=== PATIENT | female | born 1955 | race Caucasian/White ===

== ENCOUNTER 2017-08-15 16:13 | Emergency (ER) | payer MEDICAID ==
[2017-08-15] MEDS: FAMOTIDINE 20 MG TAB PO (16:47)
[2017-08-15] MEDS: predniSONE 20 MG TAB PO (16:47)
[2017-08-15] MEDS: IPRATROPIUM (NEB) 0.5 MG/2.5 ML AMP HHN (16:51)
[2017-08-15] MEDS: ALBUTEROL 0.083% (NEB) 2.5 MG/3 ML AMP HHN (16:51)
[2017-08-15 17:22] LABS: ADD MAN DIFF? NO
[2017-08-15 17:33] LABS: BASOPHILS % 0.1 % (0.0-2.0); HEMATOCRIT 38.8 % (37.0-47.0); HEMOGLOBIN 12.4 g/dl (12.0-16.0); LYMPHOCYTES # 0.8 10^3/ul (0.8-2.9); LYMPHOCYTES % 7.7 % (15.0-51.0); MEAN CORPUSCULAR HEMOGLOBIN 27.1 pg (29.0-33.0); MEAN CORPUSCULAR VOLUME 84.9 fl (82.0-101.0); MEAN PLATELET VOLUME 10.5 fl (7.4-10.4); MONOCYTE # 0.1 10^3/ul (0.3-0.9); MONOCYTES % 0.8 % (0.0-11.0); NEUTROPHIL # 9.7 10^3/ul (1.6-7.5); NEUTROPHILS % 91.1 % (39.0-77.0); PLATELET COUNT 244 10^3/UL (140-415); RED BLOOD COUNT 4.57 10^6/ul (4.20-5.40); RED CELL DISTRIBUTION WIDTH 14.9 % (11.5-14.5)
[2017-08-15 17:33] LABS: WHITE BLOOD COUNT 10.6 10^3/ul (4.8-10.8)
[2017-08-15 17:45] LABS: ALANINE AMINOTRANSFERASE 37 IU/L (13-69); ALBUMIN 4.2 g/dl (3.3-4.9); ALKALINE PHOSPHATASE 107 IU/L (42-121); ANION GAP 17 (8-16); ASPARTATE AMINO TRANSFERASE 27 IU/L (15-46); BLOOD UREA NITROGEN 10 mg/dl (7-20); CALCIUM 9.7 mg/dl (8.4-10.2); CARBON DIOXIDE 23 mmol/L (21-31); CHLORIDE 111 mmol/L (97-110); CREATININE 0.72 mg/dl (0.44-1.00); GLUCOSE 167 mg/dl (70-220); LIPASE 75 U/L (23-300); POTASSIUM 4.5 mmol/L (3.5-5.1); SODIUM 146 mmol/L (135-144)
== END 2017-08-15 18:39 | disposition home or self-care (01) ==
LOC: FTE 16:13
DX: J45.901 Unspecified asthma with (acute) exacerbation (principal); R10.13 Epigastric pain; Z79.82 Long term (current) use of aspirin
CPT/HCPCS: 71045; 80053; 83690; 85025; 93005; 94664; 99285-25

== ENCOUNTER 2017-08-21 07:12 | Emergency (ER) | payer MEDICAID ==
[2017-08-21] MEDS: DEXAMETHASONE 10 MG/ML 1 ML INJ IM (07:41)
[2017-08-21] MEDS: ALBUTEROL 0.083% (NEB) 2.5 MG/3 ML AMP HHN ×2 (07:49→08:49)
[2017-08-21] MEDS: IPRATROPIUM (NEB) 0.5 MG/2.5 ML AMP HHN (07:49)
== END 2017-08-21 09:47 | disposition home or self-care (01) ==
LOC: FTE 07:12
DX: J45.901 Unspecified asthma with (acute) exacerbation (principal); Z79.82 Long term (current) use of aspirin
CPT/HCPCS: 94640; 94664; 96372; 99284-25

== ENCOUNTER 2018-05-29 10:55 | Inpatient (IN) | payer MEDICAID ==
[2018-05-29] MEDS: IPRATROPIUM (NEB) 0.5 MG/2.5 ML AMP INH (11:36)
[2018-05-29] MEDS: ALBUTEROL 0.5% (NEB) 2.5 MG/0.5 ML AMP INH (11:36)
[2018-05-29] MEDS: METHYLPREDNISOLONE 125 MG INJ IV (11:43)
[2018-05-29] MEDS: KETOROLAC 30 MG INJ IV (11:43)
[2018-05-29] MEDS: ACETAMINOPHEN 325 MG TAB PO ×2 (11:44→23:43)
[2018-05-29] MEDS: SODIUM CHLORIDE 0.9% 1L BAG IV* (11:44)
[2018-05-29 12:15] LABS: HEMATOCRIT 36.2 % (37.0-47.0); HEMOGLOBIN 11.7 g/dl (12.0-16.0); MEAN CORPUSCULAR HEMOGLOBIN 26.7 pg (29.0-33.0); MEAN CORPUSCULAR HGB CONC 32.3 g/dl (32.0-37.0); MEAN CORPUSCULAR VOLUME 82.6 fl (82.0-101.0); MEAN PLATELET VOLUME 11.5 fl (7.4-10.4); PLATELET COUNT 142 10^3/UL (140-415); RED BLOOD COUNT 4.38 10^6/ul (4.20-5.40); RED CELL DISTRIBUTION WIDTH 15.3 % (11.5-14.5)
[2018-05-29 12:15] LABS: WHITE BLOOD COUNT 22.6 10^3/ul (4.8-10.8)
[2018-05-29 12:18] LABS: ADD MAN DIFF? YES; POSITIVE DIFF @See below
[2018-05-29 12:34] LABS: ALANINE AMINOTRANSFERASE 33 IU/L (13-69); ALBUMIN 3.7 g/dl (3.3-4.9); ALBUMIN/GLOBULIN RATIO 1.23; ALKALINE PHOSPHATASE 114 IU/L (42-121); ANION GAP 11 (5-13); ASPARTATE AMINO TRANSFERASE 39 IU/L (15-46); BILIRUBIN,INDIRECT 0.4 mg/dl (0-1.1); BILIRUBIN,TOTAL 0.4 mg/dl (0.2-1.3); BLOOD UREA NITROGEN 16 mg/dl (7-20); CALCIUM 8.8 mg/dl (8.4-10.2); CARBON DIOXIDE 22 mmol/L (21-31); CHLORIDE 101 mmol/L (97-110); CREATININE 1.12 mg/dl (0.44-1.00); Estimated GFR 49 mL/min (>60); GLUCOSE 114 mg/dl (70-220); LIPASE 18 U/L (23-300); SODIUM 134 mmol/L (135-144); TOTAL PROTEIN 6.7 g/dl (6.1-8.1)
[2018-05-29 12:41] LABS: ADD UMIC YES; UR ASCORBIC ACID NEGATIVE (NEGATIVE); UR BACTERIA FEW /HPF (NONE SEEN); UR BILIRUBIN (Dip) NEGATIVE (NEGATIVE); UR BLOOD (Dip) 2+ mg/dL (NEGATIVE); UR CLARITY SLIGHTLY CLOUDY (CLEAR); UR COLOR YELLOW (YELLOW); UR GLUCOSE (Dip) NEGATIVE (NEGATIVE); UR KETONES (Dip) 1+ mg/dL (NEGATIVE); UR LEUKOCYTE ESTERASE (Dip) 2+ Leu/ul (NEGATIVE); UR NITRITE (Dip) POSITIVE (NEGATIVE); UR RBC 4 /HPF (0-5); UR SPECIFIC GRAVITY (Dip) 1.012 (1.003-1.030); UR SQUAMOUS EPITHELIAL CELL FEW /HPF (FEW); UR TOTAL PROTEIN (Dip) 1+ mg/dl (NEGATIVE); UR UROBILINOGEN (Dip) NEGATIVE (NEGATIVE); UR WBC 108 /HPF (0-5)
[2018-05-29 12:42] LABS: INR 1.12; PROTIME 14.5 Sec (11.9-14.9); PT RATIO 1.1
[2018-05-29 12:43] LABS: ANISOCYTOSIS 1+ (0-0); BAND NEUTROPHILS #M 4.5 10^3/ul (0.0-0.6); BAND NEUTROPHILS % (M) 20 % (0-4); LYMPHOCYTES #M 3.6 10^3/ul (0.8-2.9); LYMPHOCYTES % (M) 16 % (15-51); MICROCYTOSIS 1+ (0-0); PARTIAL THROMBOPLASTIN TIME 33.2 Sec (23.0-35.0); PLATELET ESTIMATE NORMAL; REACTIVE LYMPHOCYTES #M 0.4 10^3/ul (0.0-0.0); REACTIVE LYMPHOCYTES% (M) 2 % (0-0); SEGMENTED NEUTROPHILS (M) % 62 % (39-77); SMUDGE%M 4 % (0-0)
[2018-05-29 12:45] LABS: TROPONIN-I < 0.012 ng/ml (0.000-0.120)
[2018-05-29] MEDS: CEFTRIAXONE 1 GM/50 ML (PMX) 50 ML IVPB ×3 (13:55→14:00)
[2018-05-29] MEDS ORDERED: ALBUTEROL 0.083% (NEB) 2.5 MG/3 ML AMP NEB (14:00)
[2018-05-29] MEDS ORDERED: ALPRAZOLAM 0.25 MG TAB PO (14:00)
[2018-05-29] MEDS ORDERED: ACETAMINOPHEN 325 MG TAB PO (14:00)
[2018-05-29] MEDS ORDERED: ONDANSETRON 4 MG INJ IV (14:00)
[2018-05-29] MEDS: SOD CHLORIDE 0.9% 1,000 ML IV (16:37)
[2018-05-29 19:54] LABS: LACTIC ACID 1.2 mmol/L (0.5-2.0)
[2018-05-29] MEDS: ATORVASTATIN 80 MG TAB PO (21:23)
[2018-05-29] MEDS: DOCUSATE SODIUM 100 MG CAP PO (21:23)
[2018-05-29] MEDS: MONTELUKAST 10 MG TAB PO (21:23)
[2018-05-29] MEDS: METOPROLOL 25 MG TAB PO (21:25)
[2018-05-29] MEDS: FLUTICASONE/VILANTEROL 100-25 INH (22:00)
[2018-05-30] MEDS: SOD CHLORIDE 0.9% 1,000 ML IV ×3 (02:14→19:06)
[2018-05-30] MEDS: PANTOPRAZOLE (EC) 40 MG TAB PO (06:09)
[2018-05-30 06:44] LABS: WHITE BLOOD COUNT 22.3 10^3/ul (4.8-10.8)
[2018-05-30 06:44] LABS: ABNORMAL IP MESSAGE 1; HEMATOCRIT 32.3 % (37.0-47.0); HEMOGLOBIN 10.2 g/dl (12.0-16.0); MEAN CORPUSCULAR HEMOGLOBIN 26.4 pg (29.0-33.0); MEAN CORPUSCULAR HGB CONC 31.6 g/dl (32.0-37.0); MEAN CORPUSCULAR VOLUME 83.7 fl (82.0-101.0); MEAN PLATELET VOLUME 11.9 fl (7.4-10.4); PLATELET COUNT 121 10^3/UL (140-415); RED BLOOD COUNT 3.86 10^6/ul (4.20-5.40); RED CELL DISTRIBUTION WIDTH 15.6 % (11.5-14.5)
[2018-05-30 07:05] LABS: ADD MAN DIFF? YES; POSITIVE DIFF @See below
[2018-05-30 07:20] LABS: ANION GAP 10 (5-13); BLOOD UREA NITROGEN 17 mg/dl (7-20); CALCIUM 7.8 mg/dl (8.4-10.2); CARBON DIOXIDE 21 mmol/L (21-31); CHLORIDE 111 mmol/L (97-110); CREATININE 0.85 mg/dl (0.44-1.00); Estimated GFR > 60 mL/min (>60); GLUCOSE 118 mg/dl (70-220); MAGNESIUM 2.4 mg/dl (1.7-2.5); POTASSIUM 4.1 mmol/L (3.5-5.1); SODIUM 142 mmol/L (135-144)
[2018-05-30] MEDS: ACETAMINOPHEN 325 MG TAB PO ×2 (08:16→20:44)
[2018-05-30] MEDS: DOCUSATE SODIUM 100 MG CAP PO ×2 (08:16→20:45)
[2018-05-30] MEDS: METOPROLOL 25 MG TAB PO ×2 (08:17→20:45)
[2018-05-30] MEDS: ASPIRIN (EC) 81 MG TAB PO (08:17)
[2018-05-30] MEDS: LORATADINE 10 MG TAB PO (08:17)
[2018-05-30] MEDS: ISOSORBIDE MONONITRATE(SR)30 MG TAB PO (09:00)
[2018-05-30 09:20] LABS: ANISOCYTOSIS 2+ (0-0); BAND NEUTROPHILS #M 5.5 10^3/ul (0.0-0.6); BAND NEUTROPHILS % (M) 25 % (0-4); BURR CELLS 2+ (0-0); LYMPHOCYTES #M 0.6 10^3/ul (0.8-2.9); LYMPHOCYTES % (M) 3 % (15-51); MICROCYTOSIS 2+ (0-0); MONOCYTE #M 1.3 10^3/ul (0.3-0.9); MONOCYTES % (M) 6 % (0-11); OVALOCYTES 1+ (0-0); PLATELET ESTIMATE DECREASED; POIKILOCYTOSIS 3+ (0-0); POLYCHROMASIA 2+ (0-0); SEG NEUT #M 15.9 10^3/ul (1.6-7.5); SEGMENTED NEUTROPHILS (M) % 66 % (39-77); SMUDGE%M 4 % (0-0)
[2018-05-30] MEDS: CEFTRIAXONE 1 GM/50 ML (PMX) 50 ML IVPB (14:09)
[2018-05-30] MEDS: CLOPIDOGREL 75 MG TAB PO (14:09)
[2018-05-30] MEDS: FLUTICASONE/VILANTEROL 100-25 INH (14:09)
[2018-05-30] MEDS: MEROPENEM 1 GM/50ML(PMX) 50 ML IVPB ×2 (15:56→21:08)
[2018-05-30] MEDS: MONTELUKAST 10 MG TAB PO (20:44)
[2018-05-30] MEDS: ATORVASTATIN 80 MG TAB PO (20:44)
[2018-05-31] MEDS: SOD CHLORIDE 0.9% 1,000 ML IV ×3 (05:08→20:30)
[2018-05-31] MEDS: PANTOPRAZOLE (EC) 40 MG TAB PO (05:09)
[2018-05-31] MEDS: MEROPENEM 1 GM/50ML(PMX) 50 ML IVPB ×3 (05:09→22:36)
[2018-05-31] MEDS: ACETAMINOPHEN 325 MG TAB PO ×3 (05:13→23:33)
[2018-05-31 05:33] LABS: WHITE BLOOD COUNT 17.7 10^3/ul (4.8-10.8)
[2018-05-31 05:33] LABS: HEMATOCRIT 34.3 % (37.0-47.0); MEAN CORPUSCULAR HEMOGLOBIN 26.3 pg (29.0-33.0); MEAN CORPUSCULAR HGB CONC 32.1 g/dl (32.0-37.0); MEAN CORPUSCULAR VOLUME 82.1 fl (82.0-101.0); MEAN PLATELET VOLUME 12.2 fl (7.4-10.4); PLATELET COUNT 153 10^3/UL (140-415); RED BLOOD COUNT 4.18 10^6/ul (4.20-5.40); RED CELL DISTRIBUTION WIDTH 15.8 % (11.5-14.5)
[2018-05-31 05:52] LABS: ADD MAN DIFF? YES; POSITIVE DIFF @See below
[2018-05-31 06:10] LABS: ANION GAP 9 (5-13); BLOOD UREA NITROGEN 13 mg/dl (7-20); CARBON DIOXIDE 20 mmol/L (21-31); CHLORIDE 112 mmol/L (97-110); CREATININE 0.91 mg/dl (0.44-1.00); Estimated GFR > 60 mL/min (>60); GLUCOSE 96 mg/dl (70-220); POTASSIUM 3.8 mmol/L (3.5-5.1); SODIUM 141 mmol/L (135-144)
[2018-05-31] MEDS: ASPIRIN (EC) 81 MG TAB PO (08:14)
[2018-05-31] MEDS: LORATADINE 10 MG TAB PO (08:14)
[2018-05-31] MEDS: DOCUSATE SODIUM 100 MG CAP PO ×2 (08:14→20:32)
[2018-05-31] MEDS: CLOPIDOGREL 75 MG TAB PO (08:14)
[2018-05-31] MEDS: ISOSORBIDE MONONITRATE(SR)30 MG TAB PO (08:15)
[2018-05-31] MEDS: METOPROLOL 25 MG TAB PO ×2 (08:15→20:32)
[2018-05-31] MEDS: FLUTICASONE/VILANTEROL 100-25 INH (08:16)
[2018-05-31 09:28] LABS: BAND NEUTROPHILS #M 0.5 10^3/ul (0.0-0.6); BAND NEUTROPHILS % (M) 3 % (0-4); BURR CELLS 1+ (0-0); LYMPHOCYTES #M 1.4 10^3/ul (0.8-2.9); LYMPHOCYTES % (M) 8 % (15-51); MONOCYTE #M 0.8 10^3/ul (0.3-0.9); MONOCYTES % (M) 5 % (0-11); OVALOCYTES 1+ (0-0); PLATELET ESTIMATE NORMAL; POIKILOCYTOSIS 1+ (0-0); REACTIVE LYMPHOCYTES #M 0.5 10^3/ul (0.0-0.0); REACTIVE LYMPHOCYTES% (M) 3 % (0-0); SEG NEUT #M 14.4 10^3/ul (1.6-7.5); SEGMENTED NEUTROPHILS (M) % 81 % (39-77); SMUDGE%M 3 % (0-0)
[2018-05-31] MEDS: ATORVASTATIN 80 MG TAB PO (20:31)
[2018-05-31] MEDS: MONTELUKAST 10 MG TAB PO (20:32)
[2018-06-01] MEDS: SOD CHLORIDE 0.9% 1,000 ML IV ×4 (02:00→18:35)
[2018-06-01 05:18] LABS: ADD MAN DIFF? NO
[2018-06-01 05:24] LABS: BASOPHILS % 0.1 % (0.0-2.0); EOSINOPHILS # 0.1 10^3/ul (0.0-0.5); EOSINOPHILS % 1.2 % (0.0-7.0); HEMATOCRIT 31.9 % (37.0-47.0); HEMOGLOBIN 10.1 g/dl (12.0-16.0); LYMPHOCYTES # 1.6 10^3/ul (0.8-2.9); LYMPHOCYTES % 15.9 % (15.0-51.0); MEAN CORPUSCULAR HEMOGLOBIN 26.3 pg (29.0-33.0); MEAN CORPUSCULAR HGB CONC 31.7 g/dl (32.0-37.0); MEAN CORPUSCULAR VOLUME 83.1 fl (82.0-101.0); MEAN PLATELET VOLUME 11.7 fl (7.4-10.4); MONOCYTE # 0.9 10^3/ul (0.3-0.9); MONOCYTES % 9.1 % (0.0-11.0); NEUTROPHIL # 7.3 10^3/ul (1.6-7.5); NEUTROPHILS % 73.3 % (39.0-77.0); PLATELET COUNT 154 10^3/UL (140-415); RED BLOOD COUNT 3.84 10^6/ul (4.20-5.40); RED CELL DISTRIBUTION WIDTH 15.7 % (11.5-14.5)
[2018-06-01 05:24] LABS: WHITE BLOOD COUNT 9.9 10^3/ul (4.8-10.8)
[2018-06-01] MEDS: MEROPENEM 1 GM/50ML(PMX) 50 ML IVPB (05:32)
[2018-06-01] MEDS: PANTOPRAZOLE (EC) 40 MG TAB PO (05:32)
[2018-06-01 05:46] LABS: ANION GAP 7 (5-13); BLOOD UREA NITROGEN 8 mg/dl (7-20); CALCIUM 8.3 mg/dl (8.4-10.2); CARBON DIOXIDE 23 mmol/L (21-31); CHLORIDE 112 mmol/L (97-110); CREATININE 0.83 mg/dl (0.44-1.00); Estimated GFR > 60 mL/min (>60); GLUCOSE 100 mg/dl (70-220); POTASSIUM 3.6 mmol/L (3.5-5.1); SODIUM 142 mmol/L (135-144)
[2018-06-01] MEDS: FLUTICASONE/VILANTEROL 100-25 INH (08:30)
[2018-06-01] MEDS: DOCUSATE SODIUM 100 MG CAP PO ×2 (08:31→20:41)
[2018-06-01] MEDS: ACETAMINOPHEN 325 MG TAB PO ×2 (08:31→16:10)
[2018-06-01] MEDS: METOPROLOL 25 MG TAB PO ×2 (08:32→20:37)
[2018-06-01] MEDS: CLOPIDOGREL 75 MG TAB PO (08:33)
[2018-06-01] MEDS: LORATADINE 10 MG TAB PO (08:33)
[2018-06-01] MEDS: ISOSORBIDE MONONITRATE(SR)30 MG TAB PO (08:33)
[2018-06-01] MEDS: ASPIRIN (EC) 81 MG TAB PO (08:33)
[2018-06-01] MEDS: IBUPROFEN 400 MG TAB PO ×2 (12:04→17:28)
[2018-06-01] MEDS: LEVOFLOXACIN 750MG/D5W (PMX) 150 ML IVPB (13:02)
[2018-06-01] MEDS: MONTELUKAST 10 MG TAB PO (20:36)
[2018-06-01] MEDS: ATORVASTATIN 80 MG TAB PO (20:36)
[2018-06-02] MEDS: IBUPROFEN 400 MG TAB PO ×3 (00:18→12:00)
[2018-06-02] MEDS: SOD CHLORIDE 0.9% 1,000 ML IV ×2 (04:12→08:00)
[2018-06-02] MEDS: PANTOPRAZOLE (EC) 40 MG TAB PO (07:20)
[2018-06-02] MEDS: FLUTICASONE/VILANTEROL 100-25 INH (08:42)
[2018-06-02] MEDS: DOCUSATE SODIUM 100 MG CAP PO (08:42)
[2018-06-02] MEDS: ASPIRIN (EC) 81 MG TAB PO (08:42)
[2018-06-02] MEDS: METOPROLOL 25 MG TAB PO (08:42)
[2018-06-02] MEDS: LORATADINE 10 MG TAB PO (08:42)
[2018-06-02] MEDS: CLOPIDOGREL 75 MG TAB PO (08:42)
[2018-06-02] MEDS: ISOSORBIDE MONONITRATE(SR)30 MG TAB PO (08:42)
== END 2018-06-02 15:35 | disposition home or self-care (01) | DRG 872 ==
LOC: FTE 10:55 → 2NE 13:41
DX: A41.9 Sepsis, unspecified organism (principal); N10 Acute pyelonephritis; N17.9 Acute kidney failure, unspecified; N39.0 Urinary tract infection, site not specified; B96.20 Unspecified Escherichia coli [E. coli] as the cause of diseases classified elsewhere; D63.8 Anemia in other chronic diseases classified elsewhere; E78.5 Hyperlipidemia, unspecified; I25.10 Atherosclerotic heart disease of native coronary artery without angina pectoris; I10 Essential (primary) hypertension; J44.9 Chronic obstructive pulmonary disease, unspecified; Z79.82 Long term (current) use of aspirin; Z79.02 Long term (current) use of antithrombotics/antiplatelets
CPT/HCPCS: 36415; 71045; 74176; 80048; 80053; 81001; 83605; 83690; 83735; 84484; 85025; 85610; 85730; 87040; 87086; 87400; 93005; 94644; 96374; 96375; 99291-25

== ENCOUNTER 2018-10-27 09:55 | Emergency (ER) | payer MEDICAID ==
[2018-10-27 10:45] LABS: ADD MAN DIFF? NO
[2018-10-27 10:47] LABS: BASOPHILS % 0.2 % (0.0-2.0); EOSINOPHILS # 0.2 10^3/ul (0.0-0.5); EOSINOPHILS % 1.8 % (0.0-7.0); HEMOGLOBIN 11.9 g/dl (12.0-16.0); LYMPHOCYTES # 2.1 10^3/ul (0.8-2.9); LYMPHOCYTES % 22.1 % (15.0-51.0); MEAN CORPUSCULAR HEMOGLOBIN 26.7 pg (29.0-33.0); MEAN CORPUSCULAR HGB CONC 31.3 g/dl (32.0-37.0); MEAN CORPUSCULAR VOLUME 85.2 fl (82.0-101.0); MEAN PLATELET VOLUME 10.7 fl (7.4-10.4); MONOCYTE # 0.7 10^3/ul (0.3-0.9); MONOCYTES % 6.9 % (0.0-11.0); NEUTROPHIL # 6.7 10^3/ul (1.6-7.5); NEUTROPHILS % 68.6 % (39.0-77.0); PLATELET COUNT 220 10^3/UL (140-415); RED BLOOD COUNT 4.46 10^6/ul (4.20-5.40); RED CELL DISTRIBUTION WIDTH 14.7 % (11.5-14.5)
[2018-10-27 10:47] LABS: WHITE BLOOD COUNT 9.7 10^3/ul (4.8-10.8)
[2018-10-27 10:53] LABS: ALANINE AMINOTRANSFERASE 34 IU/L (13-69); ALBUMIN/GLOBULIN RATIO 1.14; ALKALINE PHOSPHATASE 101 IU/L (42-121); ANION GAP 7 (5-13); ASPARTATE AMINO TRANSFERASE 47 IU/L (15-46); BILIRUBIN,INDIRECT 0.4 mg/dl (0-1.1); BILIRUBIN,TOTAL 0.4 mg/dl (0.2-1.3); BLOOD UREA NITROGEN 16 mg/dl (7-20); CARBON DIOXIDE 27 mmol/L (21-31); CHLORIDE 109 mmol/L (97-110); CREATININE 0.76 mg/dl (0.44-1.00); Estimated GFR > 60 mL/min (>60); GLUCOSE 113 mg/dl (70-220); LIPASE 101 U/L (23-300); POTASSIUM 4.4 mmol/L (3.5-5.1); SODIUM 143 mmol/L (135-144); TOTAL PROTEIN 7.5 g/dl (6.1-8.1)
[2018-10-27] MEDS: SOD CHLORIDE 0.9% 1,000 ML IV (11:09)
[2018-10-27] MEDS: ONDANSETRON 4 MG INJ IV (11:10)
[2018-10-27] MEDS: morphine 4 MG/ML VIAL IV (11:10)
[2018-10-27 11:21] LABS: ADD UMIC YES; UR ASCORBIC ACID NEGATIVE (NEGATIVE); UR BILIRUBIN (Dip) NEGATIVE (NEGATIVE); UR BLOOD (Dip) 1+ mg/dL (NEGATIVE); UR CLARITY CLEAR (CLEAR); UR COLOR STRAW (YELLOW); UR GLUCOSE (Dip) NEGATIVE (NEGATIVE); UR KETONES (Dip) NEGATIVE (NEGATIVE); UR LEUKOCYTE ESTERASE (Dip) NEGATIVE Leu/ul (NEGATIVE); UR NITRITE (Dip) NEGATIVE (NEGATIVE); UR NONSQUAMOUS EPITHELIAL CELL <1 /HPF (NONE SEEN); UR RBC 0 /HPF (0-5); UR SPECIFIC GRAVITY (Dip) 1.004 (1.003-1.030); UR SQUAMOUS EPITHELIAL CELL FEW /HPF (FEW); UR TOTAL PROTEIN (Dip) NEGATIVE (NEGATIVE); UR UROBILINOGEN (Dip) NEGATIVE (NEGATIVE); UR WBC 0 /HPF (0-5)
[2018-10-27] MEDS: ALBUTEROL 0.083% (NEB) 2.5 MG/3 ML AMP HHN (12:26)
== END 2018-10-27 12:50 | disposition home or self-care (01) ==
LOC: E/R 09:55
DX: K57.32 Diverticulitis of large intestine without perforation or abscess without bleeding (principal); J45.909 Unspecified asthma, uncomplicated; Z79.82 Long term (current) use of aspirin; Z79.01 Long term (current) use of anticoagulants
CPT/HCPCS: 36415; 74176; 80053; 81001; 83690; 85025; 94664; 96374; 96375; 99285-25

== ENCOUNTER 2018-11-25 09:14 | Emergency (ER) | payer MEDICAID | END 2018-11-25 10:24 | disposition home or self-care (01) | LOC: FTE 10:24 | DX: K08.89 Other specified disorders of teeth and supporting structures (principal); J45.909 Unspecified asthma, uncomplicated | CPT/HCPCS: 99283; Z7502 ==

== ENCOUNTER 2019-01-24 19:27 | Emergency (ER) | payer MEDICAID ==
[2019-01-24] MEDS: IPRATROPIUM (NEB) 0.5 MG/2.5 ML AMP HHN (20:48)
[2019-01-24] MEDS: ALBUTEROL 0.083% (NEB) 2.5 MG/3 ML AMP HHN ×2 (20:48→21:23)
[2019-01-24 21:02] LABS: ADD UMIC YES; UR ASCORBIC ACID NEGATIVE (NEGATIVE); UR BILIRUBIN (Dip) NEGATIVE (NEGATIVE); UR BLOOD (Dip) 1+ mg/dL (NEGATIVE); UR CLARITY CLEAR (CLEAR); UR COLOR YELLOW (YELLOW); UR GLUCOSE (Dip) NEGATIVE (NEGATIVE); UR KETONES (Dip) NEGATIVE (NEGATIVE); UR LEUKOCYTE ESTERASE (Dip) NEGATIVE Leu/ul (NEGATIVE); UR MUCUS FEW /HPF (NONE SEEN); UR NITRITE (Dip) NEGATIVE (NEGATIVE); UR RBC 2 /HPF (0-5); UR TOTAL PROTEIN (Dip) NEGATIVE (NEGATIVE); UR UROBILINOGEN (Dip) NEGATIVE (NEGATIVE); UR WBC 2 /HPF (0-5)
[2019-01-24] MEDS: DEXAMETHASONE 10 MG/ML 1 ML INJ IM (21:02)
== END 2019-01-25 00:21 | disposition home or self-care (01) ==
LOC: FTE 01-25 00:21
DX: J45.901 Unspecified asthma with (acute) exacerbation (principal); Z79.82 Long term (current) use of aspirin
CPT/HCPCS: 71045; 81001; 94644; 94664; 96372; 99284-25